=== PATIENT | female | born 1975 | race Caucasian/White ===

== ENCOUNTER → 2019-08-21 | Outpatient (CLI) | payer SELFPAY ==
--- NOTE | 2019-08-21 13:21 | Diagnostic Imaging Report ---
INDICATION: COUGH COMPARISON: None. FINDINGS: Frontal and lateral views of the chest demonstrate normal heart size and pulmonary vascularity. The lungs are clear. There are no signs of infiltrate, pleural effusions or pneumothoraces. The visualized osseous structures show no acute abnormalities. IMPRESSION: 1. No acute process. No signs of infiltrates, effusions or pneumothoraces. Dictated by: Dictated on workstation # [id number]
== END ==
LOC: RAD FS 13:00
PROVIDERS: ATTEND Nurse Practitioner Family
DX: R05 Cough (principal)
CPT/HCPCS: 71046

== ENCOUNTER → 2021-04-06 | Outpatient (CLI) | payer BC ==
--- NOTE | 2021-04-06 16:07 | Diagnostic Imaging Report ---
INDICATION: Heel pain. COMPARISON: None. FINDINGS: Two views of the right calcaneus were obtained and show no fractures, dislocations, or other acute bony abnormalities. Joint spaces are well maintained throughout. The soft tissues appear unremarkable. No radiopaque foreign bodies are identified. Small plantar enthesophyte is noted. IMPRESSION: No acute abnormality of the right calcaneus. Dictated by: Dictated on workstation # [id number]
== END ==
LOC: RAD FS 14:52
PROVIDERS: ATTEND Nurse Practitioner
DX: M79.671 Pain in right foot (principal)
CPT/HCPCS: 73650

== ENCOUNTER → 2022-10-12 | Outpatient (CLI) | payer OTHER ==
--- NOTE | 2022-10-12 16:04 | Diagnostic Imaging Report ---
INDICATION: Palpable lump in the left lateral thigh. Sonographic interrogation of the area of lump in the left lateral thigh was performed. Tissue at this location is fairly homogeneous. No discrete mass is identified. Only fatty tissue is noted in this area and a palpable lump could potentially represent a lipoma. No fluid collection is seen. IMPRESSION: No significant abnormality is seen. Only fatty tissue is identified at this area and possibility of a lipoma cannot be entirely excluded. Dictated by: Dictated on workstation # [id number]
== END ==
LOC: RAD FS 08:53
PROVIDERS: ATTEND Nurse Practitioner
DX: R22.42 Localized swelling, mass and lump, left lower limb (principal)
CPT/HCPCS: 76881